=== PATIENT | female | born 1990 | race American Indian/Alaskan Native ===

== ENCOUNTER 2017-01-13 09:54 | Emergency (ER) | payer MEDICAID ==
[2017-01-13] MEDS ORDERED: TYLENOL ONE (10:45)
[2017-01-13] MEDS ORDERED: TYLENOL PO ONE (10:48)
[2017-01-13 11:20] LABS: Basophils % (Auto) 0.8 % (0.0-1.8); Eosinophils % (Auto) 0.7 % (0.0-4.3); Hematocrit 37.9 % (30.3-42.9); Hemoglobin 12.1 gm/dl (10.1-14.3); Mean Corpuscular HGB Conc 32 % (30-34); Mean Corpuscular Volume 81 fl (79-97); Platelet Count 390 K/mm3 (140-440); Red Cell Distribution Width 14.9 % (13.2-15.2); White Blood Count 4.6 K/mm3 (4.5-11.0)
[2017-01-13 11:24] LABS: Bilirubin,Urine NEG (Negative); Blood,Urine NEG (Negative); Ketones,Urine NEG (Negative); Leukocyte Esterase,Urine NEG (Negative); Mucus,Urine FEW /HPF; Nitrite,Urine NEG (Negative); Protein,Urine <15 mg/dL mg/dL (Negative); Urobilinogen,Urine < 2.0 mg/dL (<2.0)
[2017-01-13 11:33] LABS: Anion Gap 17 mmol/L; BUN/Creatinine Ratio 11.42; Blood Urea Nitrogen 8 mg/dL (7-17); Calcium 9.2 mg/dL (8.4-10.2); Carbon Dioxide 20 mmol/L (22-30); Chloride 103.2 mmol/L (98-107); Glucose 95 mg/dL (65-100); Potassium 4.2 mmol/L (3.6-5.0); Sodium 136 mmol/L (137-145)
[2017-01-13 11:34] LABS: Mean Corpuscular Hemoglobin 26 pg (28-32)
--- NOTE | 2017-01-13 12:24 | Ultrasound Report ---
Transabdominal and transvaginal OB ultrasound. History: Pelvic pain. A serum hCG was not ordered prior to this study. Findings: There is a 4.2 mm in diameter sonolucency within the endometrial cavity. There is no evidence of yolk sac or pole at this time. The left ovary is normal. There is a 2.1 cm in diameter complex lesion in the right ovary. There is no evidence of free fluid. Impression: Possible very early IUP with no yolk sac or pole yet identified. A short-term followup study is recommended. 2. 2.1 cm complex lesion in the right ovary.
[2017-01-13] MEDS ORDERED: MORPHINE IM ONE (14:24)
--- NOTE | 2017-01-13 14:29 | Emergency Department Report ---
ED Abdominal Pain HPI - General Chief Complaint: Abdominal Pain Stated Complaint: / SEVERE ABD PAIN Time Seen by Provider: 01/13/17 14:11 Source: patient Mode of arrival: Ambulatory Limitations: No Limitations - History of Present Illness Initial Comments: 26-year-old female presents to the emergency department complaining of lower abdominal pain. Patient reports onset of sharp lower abdominal pain sometime during the night. Pain has been constant and radiates into her lower back. Patient reports associated nausea, but denies vomiting, diarrhea, vaginal bleeding, or vaginal discharge. Patient states she recently found out she was . This would be her fifth . She has not seen an PHYSICAL EDUCATION INSTRUCTOR for this and does not know how far along the is. There are no other complaints. MD Complaint: abdominal pain -: Gradual, During the night Location: LLQ, RLQ, suprapubic Radiation: back Migration to: no migration Severity: severe Severity scale (0 -10): 10 Quality: sharp Consistency: constant Improves With: nothing Worsens With: nothing Associated Symptoms: nausea - Related Data Home Medications Medication Instructions Recorded Confirmed Last Taken Pnv95/Ferrous Fumarate/FA 1 each PO QDAY 10/25/14 11/11/15 11/11/15 09:00 [ Vitamins] valACYclovir [Valtrex] 1 tab PO DAILY 10/25/14 11/11/15 11/10/15 22:00 Bupropion HCl [buPROPion] 1 tab PO DAILY 11/11/15 11/11/15 11/10/15 22:00 Previous Rx's Medication Instructions Recorded Last Taken Type Cephalexin [Keflex] 500 mg PO Q12HR #14 cap 05/27/16 Unknown Rx Ibuprofen [Motrin] 800 mg PO Q8HR PRN #15 tablet 05/27/16 Unknown Rx HYDROcodone/APAP 5-325 [[place] 1 each PO Q6HR PRN #20 tablet 01/13/17 Unknown Rx 5/325] Allergies Allergy/AdvReac Type Severity Reaction Status Date / Time No Known Allergies Allergy Verified 01/13/17 10:40 ED Review of Systems ROS: Stated complaint: / SEVERE ABD PAIN Other details as noted in HPI Comment: All other systems reviewed and negative Gastrointestinal: abdominal pain, nausea ED Past Medical Hx - Past Medical History Previous Medical History?: Yes Hx Hypertension: No Hx Congestive Heart Failure: No Hx Diabetes: No Hx Deep Vein Thrombosis: No Hx Renal Disease: No Hx Sickle Cell Disease: No Hx Seizures: No Hx Psychiatric Treatment: Yes (DEPRESSION) Hx Asthma: Yes Hx COPD: No Hx HIV: No Additional medical history: HERPES - Surgical History Past Surgical History?: No - Family History Family history: no significant - Social History Smoking Status: Never Smoker Substance Use Type: Alcohol - Medications Home Medications: Home Medications Medication Instructions Recorded Confirmed Last Taken Type Pnv95/Ferrous Fumarate/FA 1 each PO QDAY 10/25/14 11/11/15 11/11/15 09:00 History [ Vitamins] valACYclovir [Valtrex] 1 tab PO DAILY 10/25/14 11/11/15 11/10/15 22:00 History Bupropion HCl [buPROPion] 1 tab PO DAILY 11/11/15 11/11/15 11/10/15 22:00 History Cephalexin [Keflex] 500 mg PO Q12HR #14 cap 05/27/16 Unknown Rx Ibuprofen [Motrin] 800 mg PO Q8HR PRN #15 tablet 05/27/16 Unknown Rx HYDROcodone/APAP 5-325 [[place] 1 each PO Q6HR PRN #20 tablet 01/13/17 Unknown Rx 5/325] ED Physical Exam - General Limitations: No Limitations General appearance: alert, in distress (mild distress secondary to pain) - Head Head exam: Present: atraumatic, normocephalic - Eye Eye exam: Present: normal appearance, PERRL, EOMI - ENT ENT exam: Present: normal exam, normal orophraynx, mucous membranes moist - Neck Neck exam: Present: normal inspection, full ROM. Absent: tenderness - Respiratory Respiratory exam: Present: normal lung sounds bilaterally. Absent: respiratory distress - Cardiovascular Cardiovascular Exam: Present: regular rate, normal rhythm, normal heart sounds - GI/Abdominal GI/Abdominal exam: Present: soft, tenderness (mild suprapubic tenderness to palpation), normal bowel sounds. Absent: distended, guarding, rebound - Extremities Exam Extremities exam: Present: normal inspection, full ROM. Absent: tenderness - Back Exam Back exam: Present: normal inspection, full ROM. Absent: tenderness - Neurological Exam Neurological exam: Present: alert, oriented X3. Absent: motor sensory deficit - Skin Skin exam: Present: warm, dry, intact ED Course Vital Signs 01/13/17 10:40 Temperature 98.1 F Pulse Rate 104 H Respiratory 24 Rate Blood Pressure 139/87 O2 Sat by Pulse 96 Oximetry ED Medical Decision Making - Lab Data Result diagrams: 01/13/17 10:59 01/13/17 10:59 - Radiology Data Radiology results: report reviewed ultrasound reveals a single intrauterine gestational sac without evidence of pole or yolk sac, consistent with very early . - Medical Decision Making Lab and imaging results reviewed and discussed with the patient. Patient reports feeling better following pain medication. I have discussed the patient with Dr. Bettencourt. Patient will be discharged home to follow up with him for repeat hCG testing and ultrasound. - Differential Diagnosis ectopic , threatened , abdominal pain in , UTI Critical care attestation.: If time is entered above; I have spent that time in minutes in the direct care of this critically ill patient, excluding procedure time. ED Disposition Clinical Impression: Abdominal pain during in first trimester Disposition: DISCHARGED TO HOME OR SELFCARE Is pt being admited?: No Condition: Stable Instructions: Abdominal Pain (ED) Prescriptions: HYDROcodone/APAP 5-325 [[place] 5/325] 1 each PO Q6HR PRN #20 tablet PRN Reason: Pain Referrals: SERAFIN BETTENCOURT MD [Staff Physician] - 3-5 Days Time of Disposition: 15:33
[2017-01-13 16:40] VITALS: BP 133/68
== END 2017-01-13 16:46 | disposition home or self-care (01) ==
LOC: ED 09:54
DX: O26.891 Other specified pregnancy related conditions, first trimester (principal); R10.30 Lower abdominal pain, unspecified; F32.9 Major depressive disorder, single episode, unspecified; J45.909 Unspecified asthma, uncomplicated; Z3A.01 Less than 8 weeks gestation of pregnancy
CPT/HCPCS: 36415; 76801; 76817; 80048; 81001; 81025; 84702; 84703; 85025; 86850; 86900; 86901; 96372; 99284; J2270

== ENCOUNTER 2017-02-13 16:04 | Emergency (ER) | payer MEDICAID ==
[2017-02-13 16:44] LABS: Bilirubin,Urine NEG (Negative); Blood,Urine LG (Negative); Ketones,Urine TR mg/dL (Negative); Leukocyte Esterase,Urine NEG (Negative); Mucus,Urine 1+ /HPF; Nitrite,Urine NEG (Negative); Urobilinogen,Urine < 2.0 mg/dL (<2.0)
[2017-02-13 16:46] LABS: RBC,Urine > 182.0 /HPF (0.0-6.0)
[2017-02-13 16:47] LABS: Basophils % (Auto) 0.8 % (0.0-1.8); Eosinophils % (Auto) 1.1 % (0.0-4.3); Hemoglobin 11.4 gm/dl (10.1-14.3); White Blood Count 4.8 K/mm3 (4.5-11.0)
[2017-02-13 16:58] LABS: Hematocrit 34.5 % (30.3-42.9); Mean Corpuscular HGB Conc 33 % (30-34); Mean Corpuscular Hemoglobin 27 pg (28-32); Mean Corpuscular Volume 82 fl (79-97); Platelet Count 419 K/mm3 (140-440); Red Blood Count 4.23 M/mm3 (3.65-5.03); Red Cell Distribution Width 15.2 % (13.2-15.2)
--- NOTE | 2017-02-13 19:12 | Ultrasound Report ---
FINAL REPORT EXAM: US OB TRANSVAGINAL HISTORY: vaginal bleeding TECHNIQUE: Ultrasound pelvis transvaginal obstetrical PRIORS: None. FINDINGS: The uterus is 11.3 x 5.0 x 6.9 centimeters. There is a gestational sac within the uterus. 2 rounded echogenic foci are present within the sac most consistent with yolk sacs. No pole is definitively identified. Sac size is 2.9 centimeters There is no evidence for subchorionic hemorrhage. There is some complex mixed echogenicity material within the vagina which may reflect blood product. Right ovary is 3.4 x 2.7 x 3.9 centimeters. The left ovary is 2.9 x 1.5 x 1.6 centimeters Note is made of a complex 2.6 centimeter right ovarian cyst. No free fluid seen within the cul-de-sac IMPRESSION: Intrauterine gestational sac with 2 rounded foci consistent with yolk sacs. No pole identified at this time Mildly complex right ovarian cyst noted
--- NOTE | 2017-02-13 19:13 | Ultrasound Report ---
FINAL REPORT EXAM: US OB \T\lt; = 14 WEEKS FETUS HISTORY: vaginal bleeding TECHNIQUE: Ultrasound pelvis transabdominal PRIORS: None. FINDINGS: There is gestational sac present within the uterus. There are 2 yolk sacs identified. No pole identified The ovaries are normal in size and echogenicity. There is a 2.6 centimeter complex appearing right ovarian cyst probable corpus luteum. No free fluid identified in the cul-de-sac. IMPRESSION: Intrauterine gestational sac with 2 yolk sacs identified. No pole identified at this time. Continued followup recommended.
[2017-02-13] MEDS ORDERED: BENADRYL IV ONE (21:34)
[2017-02-13] MEDS ORDERED: ZOFRAN IV ONE (21:34)
[2017-02-13] MEDS ORDERED: TORADOL IV ONE (21:34)
--- NOTE | 2017-02-13 21:39 | Emergency Department Report ---
HPI - General Chief Complaint: Vaginal Bleeding Time Seen by Provider: 02/13/17 21:16 - HPI HPI: Room 7 The patient is a 26-year-old female presenting with a chief complaint of vaginal bleeding and pelvic pain. The patient is states today she developed vaginal bleeding. Patient states she came directly to the emergency department has not used pads. Patient complains of pelvic pain as well as low neck pain. Denies any preceding trauma or sexual intercourse. The patient states she has not seen an ARTILLERY OR NAVAL GUNFIRE OBSERVER for this yet. Location: Pelvis, low back Duration: 1 day Quality: Pain Severity: Moderate Modifying factors: [see above] Context: [see above] Mode of transportation: [not driving] ED Past Medical Hx - Past Medical History Hx Psychiatric Treatment: Yes (DEPRESSION) Hx Asthma: Yes Additional medical history: HERPES - Surgical History Past Surgical History?: No - Family History Family history: no significant - Social History Smoking Status: Current Every Day Smoker (1/2 pack per day) Substance Use Type: None - Medications Home Medications: Home Medications Medication Instructions Recorded Confirmed Last Taken Type Vit No.130/Iron/FA 1 each PO QDAY #90 tablet 02/13/17 Unknown Rx [ Tablet] oxyCODONE /ACETAMINOPHEN [Percocet 1 tab PO Q6HR PRN #10 tablet 02/13/17 Unknown Rx 5/325] ED Review of Systems ROS: Stated complaint: POSS MISCARRIAGE/8WKS PREG/VAG BLEED Other details as noted in HPI Comment: All other systems reviewed and negative Constitutional: denies: chills, fever Eyes: denies: eye pain, eye discharge, vision change ENT: denies: ear pain, throat pain Respiratory: denies: cough, shortness of breath, wheezing Cardiovascular: denies: chest pain, palpitations Endocrine: no symptoms reported Gastrointestinal: abdominal pain Genitourinary: abnormal menses Musculoskeletal: denies: back pain, joint swelling, arthralgia Skin: denies: rash, lesions Neurological: denies: headache, weakness, paresthesias Psychiatric: denies: anxiety, depression Hematological/Lymphatic: denies: easy bleeding, easy bruising Physical Exam - Physical Exam Vital Signs: Vital Signs 02/13/17 16:13 Temperature 98.4 F Pulse Rate 104 H Respiratory 18 Rate Blood Pressure 134/81 O2 Sat by Pulse 99 Oximetry Physical Exam: GENERAL: The patient is well-developed well-nourished female lying on stretcher crying appearing to be in moderate discomfort. [] HEENT: Normocephalic. Atraumatic. Extraocular motions are intact. Patient has moist mucous membranes. NECK: Supple. Trachea midline CHEST/LUNGS: Clear to auscultation. There is no respiratory distress noted. HEART/CARDIOVASCULAR: Regular. There is no tachycardia. There is no gallop rub or murmur. ABDOMEN: Abdomen is soft, with mild discomfort to palpation in this region. Patient has normal bowel sounds. There is no abdominal distention. SKIN: There is no rash. There is no edema. There is no diaphoresis. NEURO: The patient is awake, alert, and oriented. The patient is cooperative. The patient has normal speech MUSCULOSKELETAL:There is no evidence of acute injury. PELVIC: Small to moderate amount of blood in the vaginal vault. No tissue seen ED Course Vital Signs 02/13/17 16:13 Temperature 98.4 F Pulse Rate 104 H Respiratory 18 Rate Blood Pressure 134/81 O2 Sat by Pulse 99 Oximetry - Consultations Consultation #1: 02/13/17 21:45 [employer]ILLERY OR [employer] OBS[employer]ER paged 02/13/17 22:[address] Adkins-states okay to administer Percocet and may give prescription for Percocet to go home with #10 ED Medical Decision Making - Lab Data Result diagrams: 02/13/17 16:32 Laboratory Tests 02/13/17 02/13/17 02/13/17 16:17 16:32 16:32 WBC 4.8 RBC 4.23 Hgb 11.4 Hct 34.5 MCV 82 MCH 27 L MCHC 33 RDW 15.2 Plt Count 419 Lymph % (Auto) 38.9 H [place] % (Auto) 9.4 H Eos % (Auto) 1.1 Baso % (Auto) 0.8 Lymph # 1.9 [place] # 0.5 Eos # 0.1 Baso # 0.0 Seg Neutrophils % 49.8 Seg Neutrophils # 2.4 HCG, Quant 9012 H Urine Color Yellow Urine Turbidity Slightly-cloudy Urine pH 6.0 Ur Specific [place] 1.021 Urine Protein 100 mg/dl Urine Glucose (UA) Neg Urine Ketones Tr Urine Blood Lg Urine Nitrite Neg Urine Bilirubin Neg Urine Urobilinogen < 2.0 Ur Leukocyte Esterase Neg Urine WBC (Auto) 17.0 H Urine RBC (Auto) > 182.0 U Epithel Cells (Auto) 5.0 Urine Mucus 1+ Blood Type Antibody Screen BRENDA Antibody Screen 02/13/17 16:36 WBC RBC Hgb Hct MCV MCH MCHC RDW Plt Count Lymph % (Auto) [place] % (Auto) Eos % (Auto) Baso % (Auto) Lymph # [place] # Eos # Baso # Seg Neutrophils % Seg Neutrophils # HCG, Quant Urine Color Urine Turbidity Urine pH Ur Specific [place] Urine Protein Urine Glucose (UA) Urine Ketones Urine Blood Urine Nitrite Urine Bilirubin Urine Urobilinogen Ur Leukocyte Esterase Urine WBC (Auto) Urine RBC (Auto) U Epithel Cells (Auto) Urine Mucus Blood Type A POSITIVE Antibody Screen TNR BRENDA Antibody Screen Negative - Radiology Data Radiology results: report reviewed (pelvic ultrasound), image reviewed (pelvic ultrasound) Pelvic ultrasound (read by radiologist)-intrauterine gestational sac with 2 rounded foci consistent with yolk sac. No pole identified at this time. Mildly complex right ovarian cyst noted. - Differential Diagnosis ectopic , threatened , spontaneous , inevitable ab Critical care attestation.: If time is entered above; I have spent that time in minutes in the direct care of this critically ill patient, excluding procedure time. ED Disposition Clinical Impression: Threatened Disposition: DISCHARGED TO HOME OR SELFCARE Is pt being admited?: No Does the pt Need Aspirin: No Condition: Stable Instructions: Threatened Miscarriage (ED) Additional Instructions: Return to the emergency department immediately should you develop worsening symptoms, fever, inability to tolerate food or liquid or any other concerns. Prescriptions: oxyCODONE /ACETAMINOPHEN [Percocet 5/325] 1 tab PO Q6HR PRN #10 tablet PRN Reason: Pain Vit No.130/Iron/FA [ Tablet] 1 each PO QDAY #90 tablet Referrals: PRIMARY CARE, [Primary Care Provider] - 3-5 Days your ARTILLERY OR [employer] OBSERVER, [employer] [Other] - [place] Time of Disposition: 22:27
[2017-02-13 22:23] VITALS: BP 122/84
[2017-02-13] MEDS ORDERED: PERCOCET 5/325 PO ONE (22:26)
== END 2017-02-13 23:27 | disposition home or self-care (01) ==
LOC: ED 16:04
DX: O20.0 Threatened abortion (principal); O99.331 Smoking (tobacco) complicating pregnancy, first trimester; O99.511 Diseases of the respiratory system complicating pregnancy, first trimester; F32.9 Major depressive disorder, single episode, unspecified; Z3A.08 8 weeks gestation of pregnancy
CPT/HCPCS: 36415; 76801; 76817; 81001; 84702; 85025; 86850; 86900; 86901; 96374; 96375; 99284; J1200; J1885; J2405

== ENCOUNTER 2018-06-13 04:57 | Emergency (ER) | payer MEDICAID ==
[2018-06-13] MEDS ORDERED: ZOFRAN ODT PO ONE (05:15)
[2018-06-13] MEDS ORDERED: ZOFRAN ODT ONE (05:19)
[2018-06-13 05:21] VITALS: BP 125/93
[2018-06-13] MEDS ORDERED: NACL 0.9% 1000 ML 1,000 ML IV ONE ×2 (05:21→08:49)
[2018-06-13 05:47] LABS: Eosinophils # (Auto) 0.1 K/mm3 (0.0-0.4); Eosinophils % (Auto) 1.5 % (0.0-4.3); Hematocrit 40.3 % (30.3-42.9); Hemoglobin 13.1 gm/dl (10.1-14.3); Lymphocytes % (Auto) 42.6 % (13.4-35.0); Mean Corpuscular HGB Conc 33 % (30-34); Mean Corpuscular Hemoglobin 27 pg (28-32); Mean Corpuscular Volume 84 fl (79-97); Monocytes # (Auto) 0.3 K/mm3 (0.0-0.8); Monocytes % (Auto) 5.6 % (0.0-7.3); Platelet Count 339 K/mm3 (140-440); Red Cell Distribution Width 16.2 % (13.2-15.2)
[2018-06-13 06:02] LABS: Alanine Aminotransferase 7 units/L (7-56); Albumin 3.9 g/dL (3.9-5); BUN/Creatinine Ratio 14; Blood Urea Nitrogen 10 mg/dL (7-17); Calcium 9.2 mg/dL (8.4-10.2); Hemolysis Index 83
[2018-06-13] MEDS ORDERED: PEPCID IV ONE (08:49)
--- NOTE | 2018-06-13 08:52 | Emergency Department Report ---
ED N/V/D HPI - General Chief complaint: Nausea/Vomiting/Diarrhea Stated complaint: N/V/D Time Seen by Provider: 06/13/18 08:48 Source: patient Mode of arrival: Ambulatory Limitations: No Limitations - History of Present Illness Initial comments: Patient reports sudden onset of abdominal cramping, nausea and vomiting that started yesterday after attending a [facility] complaint: nausea, vomiting, abdominal pain Onset/Timin -: hour(s) Description of Vomiting: food contents Description of Diarrhea: other (none) Associated Abdominal Pain: Yes Location: epigastric Radiation: none Severity: severe Pain Scale: 10 Quality: cramping Consistency: constant Improves with: none Worsens with: eating Context: possible food poisoning Associated Symptoms: loss of appetite, nausea/vomiting. denies: cough, diaphoresis, fever/chills, headaches, malaise, rash, dysuria, shortness of breath, syncope, weakness - Related Data Previous Rx's Medication Instructions Recorded Last Taken Type Vit No.130/Iron/Folic 1 each PO QDAY #90 tablet 02/13/17 Unknown Rx [ Tablet] oxyCODONE /ACETAMINOPHEN [Percocet 1 tab PO Q6HR PRN #10 tablet 02/13/17 Unknown Rx 5/325] Nitrofurantoin Monohyd/M-Cryst 100 mg PO BID #14 capsule 06/13/18 Unknown Rx [Macrobid 100 mg Capsule] Ondansetron [Zofran TAB] 4 mg PO Q8HR PRN #6 tablet 06/13/18 Unknown Rx Allergies Allergy/AdvReac Type Severity Reaction Status Date / Time No Known Allergies Allergy Verified 01/13/17 10:40 ED Review of Systems ROS: Stated complaint: N/V/D Other details as noted in HPI Constitutional: denies: chills, fever Eyes: denies: eye pain, eye discharge, vision change ENT: denies: ear pain, throat pain Respiratory: denies: cough, shortness of breath, wheezing Cardiovascular: denies: chest pain, palpitations Endocrine: no symptoms reported Gastrointestinal: abdominal pain, nausea, vomiting. denies: diarrhea Genitourinary: denies: urgency, dysuria, discharge Musculoskeletal: denies: back pain, joint swelling, arthralgia Skin: denies: rash, lesions Neurological: denies: headache, weakness, paresthesias Psychiatric: denies: anxiety, depression Hematological/Lymphatic: denies: easy bleeding, easy bruising ED Past Medical Hx - Past Medical History Previous Medical History?: Yes Hx Hypertension: No Hx Congestive Heart Failure: No Hx Diabetes: No Hx Deep Vein Thrombosis: No Hx Renal Disease: No Hx Sickle Cell Disease: No Hx Seizures: No Hx Psychiatric Treatment: Yes (DEPRESSION) Hx Asthma: Yes Hx COPD: No Hx HIV: No Additional medical history: HERPES - Surgical History Past Surgical History?: No - Social History Smoking Status: Current Every Day Smoker Substance Use Type: None - Medications Home Medications: Home Medications Medication Instructions Recorded Confirmed Last Taken Type Vit No.130/Iron/Folic 1 each PO QDAY #90 tablet 02/13/17 Unknown Rx [ Tablet] oxyCODONE /ACETAMINOPHEN [Percocet 1 tab PO Q6HR PRN #10 tablet 02/13/17 Unknown Rx 5/325] Nitrofurantoin Monohyd/M-Cryst 100 mg PO BID #14 capsule 06/13/18 Unknown Rx [Macrobid 100 mg Capsule] Ondansetron [Zofran TAB] 4 mg PO Q8HR PRN #6 tablet 06/13/18 Unknown Rx ED Physical Exam - General Limitations: No Limitations General appearance: alert, in no apparent distress - ENT ENT exam: Present: mucous membranes dry - Neck Neck exam: Present: normal inspection, full ROM. Absent: tenderness, meningismus, lymphadenopathy, thyromegaly - Respiratory Respiratory exam: Present: normal lung sounds bilaterally. Absent: respiratory distress, wheezes, rales, rhonchi, stridor, chest wall tenderness, accessory muscle use, decreased breath sounds, prolonged expiratory - Cardiovascular Cardiovascular Exam: Present: regular rate, normal rhythm, normal heart sounds. Absent: bradycardia, tachycardia, irregular rhythm, systolic murmur, diastolic murmur - GI/Abdominal GI/Abdominal exam: Present: soft, normal bowel sounds. Absent: distended, tenderness, guarding, rebound, rigid - Extremities Exam Extremities exam: Present: normal inspection, full ROM, normal capillary refill. Absent: tenderness, pedal edema, joint swelling - Back Exam Back exam: Present: normal inspection, full ROM. Absent: tenderness, CVA tenderness (R), CVA tenderness (L), muscle spasm, paraspinal tenderness, vertebral tenderness - Neurological Exam Neurological exam: Present: alert, oriented X3, CN II-XII intact, normal gait, reflexes normal. Absent: motor sensory deficit - Psychiatric Psychiatric exam: Present: normal affect, normal mood - Skin Skin exam: Present: warm, dry, intact, normal color, rash ED Course Vital Signs 06/13/18 05:14 Temperature 97.6 F Pulse Rate 72 Respiratory 18 Rate Blood Pressure 125/93 O2 Sat by Pulse 100 Oximetry - Reevaluation(s) Reevaluation #1: 06/13/18 08:51 antiemetic, intravenous fluids, antacid and laboratory studies ED Medical Decision Making - Lab Data Result diagrams: 06/13/18 05:30 06/13/18 05:30 Lab Results 06/13/18 06/13/18 06/13/18 Range/Units 05:30 05:30 09:30 WBC 4.6 (4.5-11.0) K/mm3 RBC 4.80 (3.65-5.03) M/mm3 Hgb 13.1 (10.1-14.3) gm/dl Hct 40.3 (30.3-42.9) % MCV 84 (79-97) fl MCH 27 L (28-32) pg MCHC 33 (30-34) % RDW 16.2 H (13.2-15.2) % Plt Count 339 (140-440) K/mm3 Lymph % (Auto) 42.6 H (13.4-35.0) % [place] % (Auto) 5.6 (0.0-7.3) % Eos % (Auto) 1.5 (0.0-4.3) % Baso % (Auto) 1.0 (0.0-1.8) % Lymph # 2.0 (1.2-5.4) K/mm3 [place] # 0.3 (0.0-0.8) K/mm3 Eos # 0.1 (0.0-0.4) K/mm3 Baso # 0.0 (0.0-0.1) K/mm3 Seg Neutrophils % 49.3 (40.0-70.0) % Seg Neutrophils # 2.3 (1.8-7.7) K/mm3 Sodium 139 (137-145) mmol/L Potassium 4.5 (3.6-5.0) mmol/L Chloride 106.4 (98-107) mmol/L Carbon Dioxide 23 (22-30) mmol/L Anion Gap 14 mmol/L BUN 10 (7-17) mg/dL Creatinine 0.7 (0.7-1.2) mg/dL Estimated GFR > 60 ml/min BUN/Creatinine Ratio 14 % Glucose 101 H (65-100) mg/dL Calcium 9.2 (8.4-10.2) mg/dL Total Bilirubin 0.50 (0.1-1.2) mg/dL AST 17 (5-40) units/L ALT 7 (7-56) units/L Alkaline Phosphatase 37 (35-129) units/L Total Protein 5.9 L (6.3-8.2) g/dL Albumin 3.9 (3.9-5) g/dL Albumin/Globulin Ratio 2.0 % Urine Color Yellow (Yellow) Urine Turbidity Slightly-cloudy (Clear) Urine pH 5.0 (5.0-7.0) Ur Specific [place] 1.027 (1.003-1.030) Urine Protein <15 mg/dl (Negative) mg/dL Urine Glucose (UA) Neg (Negative) mg/dL Urine Ketones Tr (Negative) mg/dL Urine Blood Neg (Negative) Urine Nitrite Neg (Negative) Urine Bilirubin Neg (Negative) Urine Urobilinogen 4.0 (<2.0) mg/dL Ur Leukocyte Esterase Mod (Negative) Urine WBC (Auto) 35.0 H (0.0-6.0) /HPF Urine RBC (Auto) 13.0 (0.0-6.0) /HPF U Epithel Cells (Auto) 8.0 (0-13.0) /HPF Urine Mucus 3+ /HPF Vital Signs 06/13/18 05:14 Temperature 97.6 F Pulse Rate 72 Respiratory 18 Rate Blood Pressure 125/93 O2 Sat by Pulse 100 Oximetry - Medical Decision Making During the course of ED, antiemetic, antacid, intravenous fluids and laboratory studies were ordered. Patient reports cessation of N/V with antiemetic. The urine leukocytes were 35, with negative nitrates. She was sent home with prescriptions for Macrobid and Zofran, instructed to drink clear liquids for the next 24 hours, then advance diet as tolerated. Patient verbalized understanding - Differential Diagnosis UTI, Nausea/Vomiting Critical care attestation.: If time is entered above; I have spent that time in minutes in the direct care of this critically ill patient, excluding procedure time. ED Disposition Clinical Impression: Urinary tract infection Qualifiers: Urinary tract infection type: site unspecified Hematuria presence: without hematuria Qualified Code(s): N39.0 - Urinary tract infection, site not specified Nausea & vomiting Qualifiers: Vomiting type: unspecified Vomiting Intractability: unspecified Qualified Code( s): R11.2 - Nausea with vomiting, unspecified Disposition: TO HOME OR SELFCARE Is pt being admited?: No Does the pt Need Aspirin: No Condition: Stable Instructions: Urinary Tract Infection in Women (ED), Acute Nausea and Vomiting (ED) Additional Instructions: Take medication as directed. Drink clear liquids for the next 24 hours, then advanced as tolerated. Follow up with the selective referral given at discharge Prescriptions: Nitrofurantoin Monohyd/M-Cryst [Macrobid 100 mg Capsule] 100 mg PO BID #14 capsule Ondansetron [Zofran TAB] 4 mg PO Q8HR PRN #6 tablet PRN Reason: Nausea And Vomiting Referrals: PRIMARY CARE, [Primary Care Provider] - 3-5 Days [facility] [Outside] - 3-5 Days Forms: Work/School Release Form(ED) Time of Disposition: 09:59
[2018-06-13 09:45] LABS: Bilirubin,Urine NEG (Negative); Blood,Urine NEG (Negative); Color,Urine Yellow (Yellow); Mucus,Urine 3+ /HPF; Protein,Urine <15 mg/dL mg/dL (Negative)
== END 2018-06-13 10:15 | disposition home or self-care (01) ==
LOC: ED 04:57
DX: N39.0 Urinary tract infection, site not specified (principal); R11.2 Nausea with vomiting, unspecified; J45.909 Unspecified asthma, uncomplicated; F17.200 Nicotine dependence, unspecified, uncomplicated
CPT/HCPCS: 36415; 80053; 81001; 85025; 96361; 96374; 99283; J7030; Q0162

== ENCOUNTER 2018-10-13 16:38 | Emergency (ER) | payer MEDICAID, OTHER ==
--- NOTE | 2018-10-13 16:58 | Emergency Department Report ---
ED Rash HPI - HPI Stated Complaint: HAIR LIGHTS Time Seen by Provider: 10/13/18 16:52 Duration: 5 Days Location: Other (hair) Suspected Cause: Other (hair lice) Rash Symptoms: Yes Itching, No Facial Swelling, No Tongue/Oral Swelling, No Breathing Difficulties, No Choking Sensation, No Wheezing/Dyspnea, No Peeling, No Blistering, No Fever, No Lightheaded, No Malaise, No Myalgias Severity: mild Other History: This is a 27-year-old female nontoxic, well nourished in appearance, no acute signs of distress presents to the ED with c/o of itching hair 2 days. Patient stated as encounter with several family members that has had lice. Patient denies any other symptoms. Patient denies any fever, chills, nausea vomiting chest pain or shortness of breath. Denies any allergies or significant past medical history. ED Review of Systems ROS: Stated complaint: HAIR LIGHTS Other details as noted in HPI Constitutional: denies: chills, fever Eyes: denies: eye pain, eye discharge, vision change ENT: denies: ear pain, throat pain Respiratory: denies: cough, shortness of breath, wheezing Cardiovascular: denies: chest pain, palpitations Endocrine: no symptoms reported Gastrointestinal: denies: abdominal pain, nausea, diarrhea Genitourinary: denies: urgency, dysuria, discharge Musculoskeletal: denies: back pain, joint swelling, arthralgia Skin: denies: rash, lesions Neurological: denies: headache, weakness, paresthesias Psychiatric: denies: anxiety, depression Hematological/Lymphatic: denies: easy bleeding, easy bruising ED Past Medical Hx - Past Medical History Hx Hypertension: No Hx Congestive Heart Failure: No Hx Diabetes: No Hx Deep Vein Thrombosis: No Hx Renal Disease: No Hx Sickle Cell Disease: No Hx Seizures: No Hx Psychiatric Treatment: Yes (DEPRESSION) Hx Asthma: Yes Hx COPD: No Hx HIV: No Additional medical history: HERPES - Social History Smoking Status: Current Every Day Smoker Substance Use Type: None - Medications Home Medications: Home Medications Medication Instructions Recorded Confirmed Last Taken Type Vit No.130/Iron/Folic 1 each PO QDAY #90 tablet 02/13/17 Unknown Rx [ Tablet] oxyCODONE /ACETAMINOPHEN [Percocet 1 tab PO Q6HR PRN #10 tablet 02/13/17 Unknown Rx 5/325] Nitrofurantoin Monohyd/M-Cryst 100 mg PO BID #14 capsule 06/13/18 Unknown Rx [Macrobid 100 mg Capsule] Ondansetron [Zofran TAB] 4 mg PO Q8HR PRN #6 tablet 06/13/18 Unknown Rx Ibuprofen [Motrin 600 MG tab] 600 mg PO Q8H #30 tablet 08/20/18 Unknown Rx Permethrin [Nix Complete] 324.86 ml MC ONCE #1 combo..pkg 10/13/18 Unknown Rx Rash Exam - Exam General: Vital signs noted. No distress. Alert and acting appropriately. Lungs: Yes Good Air Exchange (Normal Breath Sounds), No Wheezes, No Ronchi, No Stridor, No Cough, No Labored Respirations, No Retractions, No Use of Accessory Muscles, No Other Abnormal Lung Sounds Heart: Yes Regular, No Murmur Skin: Yes Other (lice and nits present), No Urticarial Rash, No Maculopapular Rash, No Morbilliform rash, No Bulla(e), No Excoriations, No Weeping, No Tenderness, No Erythema, No Edema, No Encrustations Other: Positive: Abdomen Normal, Neurologic Normal, Musculoskeletal Normal ED Course - Reevaluation(s) Reevaluation #1: 10/13/18 16:56 Patient is speaking in full sentences with no signs of distress noted. Critical care attestation.: If time is entered above; I have spent that time in minutes in the direct care of this critically ill patient, excluding procedure time. ED Disposition Clinical Impression: Pediculosis capitis Disposition: DC- TO HOME OR SELFCARE Is pt being admited?: No Does the pt Need Aspirin: No Condition: Stable Instructions: Head lice in Children (ED) Additional Instructions: Topical: Cream rinse/lotion 1%: Prior to application, wash hair with conditioner-free shampoo; rinse with water and towel dry. Apply a sufficient amount of lotion or cream rinse to saturate the hair and scalp (especially behind the ears and nape of neck). Leave on hair for 10 minutes (but no longer), then rinse off with warm water; remove remaining nits with nit comb. A single application is generally sufficient; however, may repeat 7 days after first treatment if lice or nits are still present. Follow-up with a primary care doctor in 3-5 days or if symptoms worsen and continue return to emergency room as soon as possible. Prescriptions: Permethrin [Nix Complete] 324.86 ml MC ONCE #1 combo..pkg Referrals: PRIMARY CARE, [Referring] - 3-5 Days KOBE BENAVIDES MD [Staff Physician] - 3-[address] [facility] [Outside] - 3-5 Days Forms: Work/School Release Form(ED)
== END 2018-10-13 17:50 | disposition home or self-care (01) ==
LOC: ED 16:38
CPT/HCPCS: 99282

== ENCOUNTER 2020-10-20 12:27 | Emergency (ER) | payer MEDICAID, OTHER ==
[2020-10-20 12:41] VITALS: BP 148/91
--- NOTE | 2020-10-20 14:00 | Emergency Department Report ---
ED Headache HPI - General Chief Complaint: Headache Stated Complaint: HEADACHE Time Seen by Provider: 10/20/20 13:58 Source: patient - History of Present Illness Initial Comments: 29-year-old female presents to the ER today complaining of a bitemporal headache. She states that the headache started early this morning after eating catfish which she felt was very salty. Patient states that last night she was seeing some spots but this has since resolved. She states that the headache has been constant. She tried Tylenol without any relief. She denies any head injury. She denies any associated nausea, vomiting, blurry vision, neck pain, URI symptoms, fever, chills, focal weakness, numbness tingling or any other symptoms. Patient was concerned about her blood pressure. She states that long time ago she was started on blood pressure medication from the ER, but she stopped taking it. She has not been able to follow-up with her primary care doctor due to lack of insurance, but she states that her Medicaid just got reinstated. Allergies/Adverse Reactions: Allergies No Known Allergies Allergy (Verified 10/20/20 12:39) Home Medications: Ambulatory Orders Vit No.130/Iron/Folic [ Tablet] 1 each PO QDAY #90 tablet 02/13/17 oxyCODONE /ACETAMINOPHEN [Percocet 5/325] 1 tab PO Q6HR PRN #10 tablet 02/13/17 Nitrofurantoin Monohyd/M-Cryst [Macrobid 100 mg Capsule] 100 mg PO BID #14 capsule 06/13/18 Ondansetron [Zofran TAB] 4 mg PO Q8HR PRN #6 tablet 06/13/18 Permethrin [Nix Complete] 324.86 ml MC ONCE #1 combo..pkg 10/13/18 Albuterol Mdi (or & Nicu Only) [ProAir HFA Inhaler] 2 puff IH QID PRN #8.5 gram 10/20/20 Butalb/Acetaminophen/Caffeine [Fioricet 50-300-40 mg CAP] 1 cap PO Q6HR PRN #15 cap 10/20/20 Ibuprofen [Motrin 600 MG tab] 600 mg PO Q8H #30 tablet 10/20/20 ED Review of Systems ROS: Stated complaint: HEADACHE Other details as noted in HPI Constitutional: denies: chills, fever Eyes: denies: eye pain, eye discharge, vision change ENT: denies: ear pain, throat pain Respiratory: denies: cough, shortness of breath, wheezing Cardiovascular: denies: chest pain, palpitations Gastrointestinal: denies: nausea, vomiting Musculoskeletal: other (Negative neck pain). denies: arthralgia Neurological: headache. denies: weakness, numbness, paresthesias, confusion, abnormal gait ED Past Medical Hx - Past Medical History Hx Hypertension: No Hx Congestive Heart Failure: No Hx Diabetes: No Hx Deep Vein Thrombosis: No Hx Renal Disease: No Hx Sickle Cell Disease: No Hx Headaches / Migraines: Yes Hx Seizures: No Hx Psychiatric Treatment: Yes (DEPRESSION) Hx Asthma: Yes Hx COPD: No Hx HIV: No Additional medical history: HERPES - Social History Smoking Status: Never Smoker Substance Use Type: None - Medications Home Medications: Home Medications Medication Instructions Recorded Confirmed Last Taken Type Vit No.130/Iron/Folic 1 each PO QDAY #90 tablet 02/13/17 Unknown Rx [ Tablet] oxyCODONE /ACETAMINOPHEN [Percocet 1 tab PO Q6HR PRN #10 tablet 02/13/17 Unknown Rx 5/325] Nitrofurantoin Monohyd/M-Cryst 100 mg PO BID #14 capsule 06/13/18 Unknown Rx [Macrobid 100 mg Capsule] Ondansetron [Zofran TAB] 4 mg PO Q8HR PRN #6 tablet 06/13/18 Unknown Rx Permethrin [Nix Complete] 324.86 ml MC ONCE #1 combo..pkg 10/13/18 Unknown Rx Albuterol Mdi (or & Nicu Only) 2 puff IH QID PRN #8.5 gram 10/20/20 Unknown Rx [ProAir HFA Inhaler] Butalb/Acetaminophen/Caffeine 1 cap PO Q6HR PRN #15 cap 10/20/20 Unknown Rx [Fioricet 50-300-40 mg CAP] Ibuprofen [Motrin 600 MG tab] 600 mg PO Q8H #30 tablet 10/20/20 Unknown Rx ED Physical Exam - General Limitations: No Limitations General appearance: alert, in no apparent distress - Head Head exam: Present: atraumatic, normocephalic, normal inspection - Eye Eye exam: Present: normal appearance, PERRL, EOMI Pupils: Present: normal accommodation - ENT ENT exam: Present: normal exam, mucous membranes moist - Neck Neck exam: Present: normal inspection, full ROM. Absent: meningismus - Respiratory Respiratory exam: Present: normal lung sounds bilaterally. Absent: respiratory distress - Cardiovascular Cardiovascular Exam: Present: regular rate. Absent: normal rhythm - Neurological Exam Neurological exam: Present: alert, oriented X3, CN II-XII intact, normal gait. Absent: motor sensory deficit - Psychiatric Psychiatric exam: Present: normal affect, normal mood - Skin Skin exam: Present: intact ED Course Vital Signs 10/20/20 12:40 Temperature 98.0 F Pulse Rate 91 H Respiratory 20 Rate Blood Pressure 148/91 O2 Sat by Pulse 100 Oximetry ED Medical Decision Making - Medical Decision Making The patient presented to the emergency department with a headache. The patient is resting comfortably and is alert, talkative, interactive and in no distress. The patient appears well. The examination is unremarkable and benign. The patient is neurologically intact, has a normal mental status, and is ambulatory in the ER. The history, exam, diagnostic testing and the patient's current condition does not suggest meningitis, stroke, sepsis, subarachnoid hemorrhage, intracranial bleeding, encephalitis, temporal arteritis or other significant pathology to warrant further testing, continued ED treatment, admission, neurological consultation or other specialist evaluation at this point. Patient blood pressure at initial triage was 148/91, this was repeated by me during the time of H&P, it was 139/93. Recommend to the patient that she checks her blood pressure at home, but also follow-up with local primary care doctor to continue to monitor her blood pressure. Her vital signs are stable. The patient's condition is stable and appropriate for discharge. The patient will pursue further outpatient evaluation with the primary care physician or other designated or consulting physician as indicated in the discharge instruction. Critical care attestation.: If time is entered above; I have spent that time in minutes in the direct care of this critically ill patient, excluding procedure time. ED Disposition Clinical Impression: Headache, Medication refill Disposition: - TO HOME OR SELFCARE Is pt being admited?: No Does the pt Need Aspirin: No Condition: Stable Instructions: General Headache Without Cause Additional Instructions: Take the medication prescribed to you as directed. Follow-up with your primary care doctor next week. Return to the ER if your symptoms changes or worsens in any way. Prescriptions: Butalb/Acetaminophen/Caffeine [Fioricet 50-300-40 mg CAP] 1 cap PO Q6HR PRN #15 cap PRN Reason: Headache Ibuprofen [Motrin 600 MG tab] 600 mg PO Q8H #30 tablet Albuterol Mdi (or & Nicu Only) [ProAir HFA Inhaler] 2 puff IH QID PRN #8.5 gram PRN Reason: Shortness Of Breath Referrals: PASCUAL MCKOY MD [Staff Physician] - 3-5 Days Forms: Work/School Release Form(ED) Time of Disposition: 14:04
== END 2020-10-20 14:29 | disposition home or self-care (01) ==
LOC: ED 12:27
DX: R51.9 Headache, unspecified (principal); Z76.0 Encounter for issue of repeat prescription; F32.9 Major depressive disorder, single episode, unspecified; J45.909 Unspecified asthma, uncomplicated; Z79.1 Long term (current) use of non-steroidal anti-inflammatories (NSAID); Z79.899 Other long term (current) drug therapy
CPT/HCPCS: 99282